=== PATIENT | male | born 1970 | race African-American/Black ===

== ENCOUNTER 2019-11-11 15:55 | Observation (INO) ==
[2019-11-11] MEDS ORDERED: HUMALOG IV ONE (16:38)
[2019-11-11] MEDS ORDERED: SODIUM CHLORIDE 0.9% INJ SCH (17:45)
[2019-11-11] MEDS: LOVENOX SUBQ SCH (17:46)
[2019-11-11] MEDS: NS 1,000 ML IV SCH (17:46)
[2019-11-11] MEDS: GLUCOPHAGE PO SCH (17:47)
--- NOTE | 2019-11-11 18:11 | HISTORY AND PHYSICAL ---
CHIEF COMPLAINT: Polyuria, polydipsia, and blood sugars above 600. HISTORY OF PRESENT ILLNESS: He is 49-year-old male with known history of type 2 diabetes. Lately, he has been noncompliant with diet and blood sugars were running high. He has been on metformin 500 mg p.o. b.i.d. Today, in my office, blood sugar 731, hyponatremia and anion gap 15. Basically, he has been admitted to the hospital for uncontrolled diabetes, and he was started on IV fluids and insulin. 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 PAST SURGICAL HISTORY: Partial colectomy on the right, Port-A-Cath on the right side, and appendectomy. MEDICATIONS: 1. Allopurinol 300 daily. 2. Lotrel 10/40 daily. 3. Gabapentin 300 3 times daily. 4. Metformin 500 p.o. b.i.d. 5. Prilosec 40 daily. 6. Pravastatin 20 mg daily, which has been stopped. 7. Sulindac as needed. ALLERGIES: Amoxicillin and Zithromax. SOCIAL HISTORY: He is single and living with . No smoking. No alcohol. Living in [place]. FAMILY HISTORY: Father of respiratory failure in his 70's. Mom of heart attack at 60. HEALTH MAINTENANCE: Influenza vaccine was refused. Last physical exam 11/09/2019. Last colonoscopy January of 2019. REVIEW OF SYSTEMS: HEENT: Vision problems, polyuria, and polydipsia. No dizziness. Neck: No neck pain. No goiter. Cardiopulmonary: A lot of atypical chest pain. Recent stress test was negative. Burping. GI: No abdominal pain. Slightly nauseous. No vomiting. No bleeding per rectum. : No history of polyuria or polydipsia. No dysuria. Extremities: No swelling of legs. Tingling and numbness in both feet. Neurologic: No focal symptoms or weakness. PHYSICAL EXAMINATION: VITAL SIGNS: Temperature 97 degrees, pulse 63, and blood pressure is stable. HEENT: Dry mucous membranes. Pupils equal and reactive to light. NECK: Supple. No lymphadenopathy. CHEST: Bilateral air entry. HEART: Sounds are regular. ABDOMEN: Belly is soft. Nontender. Good bowel sounds. No peripheral edema or cyanosis. NEUROLOGIC: No neurological deficits. INVESTIGATIONS: Sodium 130, anion gap 15, and blood sugar 700. ASSESSMENT AND PLAN: 1. A 49-year-old male admitted to the hospital with hyperglycemic dehydration. Blood sugar 720. Plan is IV fluids, insulin sliding scale with insulin coverage. Get the C- peptide in the morning. Increasing metformin 1000 mg p.o. b.i.d. Dietary indiscretion was the cause. Last A1c was 8.2, the one before was 6.9. He is not receiving any steroids. 2. Atypical chest pain. Stress test was negative. 3. Hypertension on Lotrel. 4. DVT and GI prophylaxis with Lovenox and Protonix. 5. Stage III colon cancer under the care of Dr. Vivar. 6. Gout on allopurinol, stable. 7. Will follow up. cc: Sy Sellers MD
[2019-11-11] MEDS: PROTONIX IV SCH (18:35)
[2019-11-11] MEDS: HUMULIN R SUBQ SCH (21:22)
[2019-11-12] MEDS: HUMULIN R SUBQ SCH ×4 (06:36→20:33)
[2019-11-12] MEDS: NS 1,000 ML IV SCH ×3 (06:37→22:57)
[2019-11-12 07:17] LABS: BASO# 0.01 X1000 (0.0-0.2); BASO% 0.2 % (0.0-0.8); EOS# 0.12 X1000 (0.0-0.7); EOS% 2.1 % (0.0-10.0); HEMATOCRIT 36.4 % (42.0-52.0); HEMOGLOBIN 12.5 g/dL (14.0-18.0); LYMPH# 2.11 X1000 (1.2-3.4); LYMPH% 37.5 % (20.5-51.1); MCHC 34.3 g/dL (33-37); MCV 81.6 FL (81-99); MONO# 0.52 X1000 (0.11-0.59); MONO% 9.2 % (1.7-9.3); MPV 12.4 FL (7.4-10.4); NEUT# 2.87 X1000 (1.4-6.5); PLT 192 X1000 (130-400); RBC 4.46 XMIL (4.7-6.1); RDW 13.4 % (11.5-14.5); WBC 5.63 X1000 (4.8-10.8)
[2019-11-12 07:40] LABS: AGAP 14; ALB/GLOB RATIO 1.4; ALBUMIN 4.2 g/dL (3.5-5.0); ALKALINE PHOSPHATASE 134 U/L (32-122); BUN 15 mg/dL (8-22); CALCIUM 9.3 mg/dL (8.8-10.2); CHLORIDE 101 mmol/L (98-107); COSMO 284; ESTIMATED GFR > 60; GLUCOSE 274 mg/dL (70-104); GOT 53 U/L (10-34); GPT 102 U/L (10-44); MAGNESIUM 1.8 mg/dL (1.5-2.7); PHOSPHORUS 3.9 mg/dL (2.7-4.5); POTASSIUM 3.9 mmol/L (3.5-5.1); SODIUM 137 mmol/L (136-145); TCO2 22 mmol/L (25-35); TOTAL BILIRUBIN 0.55 mg/dL (0.20-1.00); TOTAL PROTEIN 7.1 g/dL (6.3-8.3)
[2019-11-12] MEDS: ZYLOPRIM PO SCH (09:40)
[2019-11-12] MEDS: GLUCOPHAGE PO SCH ×2 (09:40→16:39)
[2019-11-12] MEDS ORDERED: HUMULIN R SUBQ ONE (13:28)
[2019-11-12] MEDS: LOVENOX SUBQ SCH (16:40)
[2019-11-12] MEDS: PROTONIX IV SCH (17:47)
--- NOTE | 2019-11-12 19:27 | PROGRESS NOTE ---
DATE: 11/12/2019 SUBJECTIVE: The patient is a little better. Still blood sugars running about 300 after eating. PHYSICAL EXAMINATION: Temperature is 98 degrees. Vitals are stable. No change to physical exam. ASSESSMENT AND PLAN: 1. Hyperglycemic dehydration. Will check the C-peptide still pending. Based on that further recommendations will be followed. 2. Continue IV fluids. 3. Deep vein thrombosis and gastrointestinal prophylaxis. I did increase the metformin 1000 p.o. b.i.d. 4. History of stage III colon cancer. Stable. 5. Elevated liver function tests. Stop the pravastatin and will monitor for next 24 hours and then will discharge. LEVEL OF DOCUMENTATION: 25 minutes. cc: Sy Sellers MD
[2019-11-13] MEDS: HUMULIN R SUBQ SCH (06:21)
[2019-11-13 08:08] VITALS: BP 151/97
[2019-11-13] MEDS: GLUCOPHAGE PO SCH (08:43)
[2019-11-13] MEDS: ZYLOPRIM PO SCH (08:43)
[2019-11-13] MEDS: NS 1,000 ML IV SCH (09:48)
--- NOTE | 2019-11-13 17:50 | DISCHARGE SUMMARY ---
ADMISSION DATE: 11/11/2019 DISCHARGE DATE: 11/13/2019 DISCHARGING DIAGNOSIS: Uncontrolled diabetes A1c 8.2, blood sugar 720 and C-peptide 4.5. SECONDARY DIAGNOSES: 1. Stage 3 colon cancer. 2. Metabolic syndrome. 3. Gout. 4. Hyperlipidemia. 5. Hypertension. 6. Non-alcoholic steatohepatitis with elevated liver function tests. 7. Sleep apnea. 8. Polyneuropathy of both legs due to carboplatin and underlying diabetes. BRIEF HISTORY AND HOSPITAL COURSE: Please see the H and P that was done on 11/11/2019. In brief, he is a 49-year-old male with reasonably controlled diabetes on metformin 500 p.o. b.i.d. For the last 2 weeks, the blood sugar is running more than 400. A1c 8.0. He was advised to increase the metformin 1000 p.o. b.i.d. despite he has significant elevated blood sugars. Prior to the hospitalization in my office, blood sugar 720, anion gap 14, sodium 130. As a result, he was admitted to the hospital for impending DKA and hyperglycemic dehydration. Patient was given IV fluids and several doses of insulin. C-peptide 4.5. He may need temporally basal insulin long-acting 20 units at bedtime. I did increase the metformin to 1000 p.o. b.i.d. The patient was also given FreeStyle Kannan sensors and reading device. Continue the dietary management. LABORATORY DATA FOLLOWS: CBC: White cell count 5.6, hematocrit 36, platelets 192,000. Sodium 137, potassium 3.9, chloride 101, BUN 15, creatinine 1.0, glucose 274. C-peptide 4.5. LFTs were high. DISCHARGE INSTRUCTIONS: Metformin 1000 p.o. b.i.d., allopurinol 100 daily, multivitamin 1 tablet daily, Neurontin 300 b.i.d., nebulizers as needed, Exforge 10/320 daily, insulin Lantus 20 units at bedtime, monitoring blood sugars on FreeStyle sensors. Continue to monitor surveillance of colon cancer with Dr. Vivar. Follow up in my office in 10 days. cc: Sy Sellers MD
== END 2019-11-13 09:53 | disposition home or self-care (01) ==
LOC: DIRADM → 4N 15:55
PROVIDERS: ADMIT Internal Medicine; ATTEND Internal Medicine